=== PATIENT | male | born 1990 | race Two or more races ===

== ENCOUNTER 2016-10-06 11:17 | Inpatient (IN) | payer OTHER ==
[2016-10-06] MEDS ORDERED: SODIUM CHLORIDE 0.9% 3 ML FLUSH FLUSH PRN (11:54)
--- NOTE | 2016-10-06 12:10 | EDPRACDOC ---
- General Information Information Source: Patient Mode Of Arrival: Car - History of Present Illness Onset: 3 days Pain Location: Reports: RLQ Pain Context: Reports: Spontaneous Pain Severity: Mild Pain Quality: Reports: Aching Pain Radiation: Reports: No Radiation Modifying Factors: improves with: Nothing Associated Signs & Symptoms: Reports: Nausea, Vomiting. Denies: Diarrhea, Dysuria, Fever, Chills Oral Intake: Normal Urinary Output: Normal <GregoryNicole - Last Filed: 10/06/16 11:54> <Aaron Gallowayald Oscar - Last Filed: 10/06/16 15:24> - General Information Chief Complaint: Abdominal Pain Stated Complaint: ABD PAIN Time Seen by Provider: 10/06/16 11:34 Home Medications: Home Medications No Home Medications 10/06/16 Allergies/Adverse Reactions: Allergies Allergy/AdvReac Type Severity Reaction Status Date / Time No Known Allergies Allergy Verified 10/06/16 11:25 - History of Present Illness HPI: Patient reports RLQ pain started Friday with nausea/vomiting, denies fever, chills. Reports some pain with urination. No flank pain, father with hx of kidney stones, patient denies hx of stones or abdominal surgery. (Nicole Jenkins) ED Past Medical History - History Reviewed Yes Nurses notes reviewed and agree except as marked - Patient Medical History Psychological History: Denies: Depression Surgical History: Reports: No Significant History - Social Medical History Smoking Status: Never smoker ETOH: None Substance Abuse: None Lives In: Home <GregoryNicole Amaya - Last Filed: 10/06/16 11:54> EDM Review of Systems - Review of Systems ROS Negative Except as Marked: Yes All systems reviewed and were negative except as marked Constitutional: No Symptoms Reported. negative: Chills, Fever Eyes: No Symptoms Reported Throat: No Symptoms Reported Nose: No Symptoms Reported Mouth: No Symptoms Reported Respiratory: No Symptoms Reported Gastrointestinal: Nausea, Pain, Vomiting Genitourinary: No Symptoms Reported Neurological: No Symptoms Reported Musculoskeletal: No Symptoms Reported Integumentary: No Symptoms Reported <Nicole Jenkins - Last Filed: 10/06/16 11:54> - Physical Exam Constitutional: Alert (Awake), No apparent distress Oriented to: Time, Person, Place - HEENT Head: Normal ( normocephalic) Eye Exam: Normal (PERRL, EOMI, Sclera white) Neck: Normal (FROM, trachea at midline) - Respiratory/Cardiovascular Respiratory: Normal - CTA (BBS clear to auscultation without adventitious sounds ) Cardiovascular: Normal (RRR without murmur, gallop or rub) - GI Auscultation: Normal (NABS) Tenderness: Mild, RLQ - Musculoskeletal Back: Normal (Non-Tender) Extremities: Normal (Normal tone, Pulses 2+ No cyanosis or edema, FROM) - Integumentary Skin: Normal, Warm, Dry Lymphatics: Normal (no adenopathy) - Neurologic Memory Impaired: Normal Motor Function: Normal (Normal tone, Pulses 2+ No cyanosis or edema, FROM) Mood Description: Normal <Nicole Jenkins - Last Filed: 10/06/16 11:54> <Nicole Jenkins - Last Filed: 10/06/16 11:54> - Results 10/06/16 11:37 10/06/16 11:37 <Sandeep Galloway - Last Filed: 10/06/16 15:24> - Results WBC 23.1 xk/uL (3.8-10.8) H 10/06/16 11:37 RBC 5.78 xM/uL (4.70-6.10) 10/06/16 11:37 Hgb 16.0 g/dL (14.0-18.0) 10/06/16 11:37 Hct 47.7 % (42-52) 10/06/16 11:37 MCV 83 fL (80-94) 10/06/16 11:37 MCH 27.8 pg (27-32) 10/06/16 11:37 MCHC 33.6 g/dl (33-36) 10/06/16 11:37 RDW 13.2 % (11.5-14.5) 10/06/16 11:37 Plt Count 295 xk/uL (130-400) 10/06/16 11:37 MPV 8.6 fL (7.4-10.4) 10/06/16 11:37 Neut % (Auto) Cancelled 10/06/16 11:37 Lymph % (Auto) Cancelled 10/06/16 11:37 Love % (Auto) Cancelled 10/06/16 11:37 Eos % (Auto) Cancelled 10/06/16 11:37 Baso % (Auto) Cancelled 10/06/16 11:37 Absolute Neuts (auto) Cancelled 10/06/16 11:37 Absolute Lymphs (auto) Cancelled 10/06/16 11:37 Seg Neuts % (Manual) 70 % (45-76) 10/06/16 11:37 Band Neutrophils % 3 % (0-5) 10/06/16 11:37 Lymphocytes % (Manual) 14 % (17-44) L 10/06/16 11:37 Monocytes % (Manual) 12 % (0-10) H 10/06/16 11:37 Basophils % (Manual) 1 % (0-2) 10/06/16 11:37 Absolute Neutrophils 16.86 xk/uL (1.7-8.2) H 10/06/16 11:37 Absolute Lymphocytes 3.23 xk/uL (0.65-4.75) 10/06/16 11:37 Atypical Lymphocytes Occ 10/06/16 11:37 Platelet Estimate Norm (NORMAL) 10/06/16 11:37 RBC Morphology Norm 10/06/16 11:37 Sodium 134 mEq/L (137-146) L 10/06/16 11:37 Potassium 4.5 mEq/L (3.5-5.1) 10/06/16 11:37 Chloride 93 mEq/L (98-107) L 10/06/16 11:37 Carbon Dioxide 28 mMOL/L (22-33) 10/06/16 11:37 Anion Gap 18 mEq/L (8-16) H 10/06/16 11:37 BUN 10 MG/DL (9-20) 10/06/16 11:37 Creatinine 0.80 MG/DL (0.66-1.25) 10/06/16 11:37 Estimated GFR (MDRD) > 60 mL/min (>=60) 10/06/16 11:37 Glucose 99 MG/DL (70-99) 10/06/16 11:37 Calculated Osmolality 257 MOs/Kg (270-290) L 10/06/16 11:37 Calcium 9.7 MG/DL (8.4-10.2) 10/06/16 11:37 Total Bilirubin 1.9 MG/DL (0.2-1.3) H 10/06/16 11:37 AST 23 IU/L (17-59) 10/06/16 11:37 ALT 35 IU/L (21-72) 10/06/16 11:37 Alkaline Phosphatase 116 IU/L (38-126) 10/06/16 11:37 Total Protein 8.3 G/DL (6.3-8.2) H 10/06/16 11:37 Albumin 4.5 G/DL (3.5-5.0) 10/06/16 11:37 Lipase 31 U/L (23-300) 10/06/16 11:37 Urine Color Yellow 10/06/16 11:30 Urine Clarity Clear 10/06/16 11:30 Urine pH 6.0 (5.0-8.0) 10/06/16 11:30 Ur Specific [place] 1.015 (1.003-1.035) 10/06/16 11:30 Urine Protein 1+ (NEG/TRACE) H 10/06/16 11:30 Urine Glucose (UA) Neg (NEGATIVE) 10/06/16 11:30 Urine Ketones 1+ (NEGATIVE) H 10/06/16 11:30 Urine Occult Blood Neg (NEG/TRACE) 10/06/16 11:30 Urine Nitrite Neg (NEGATIVE) 10/06/16 11:30 Urine Bilirubin Neg (NEGATIVE) 10/06/16 11:30 Urine Urobilinogen 0.2 MG/DL (0-1) 10/06/16 11:30 Ur Leukocyte Esterase Neg (NEGATIVE) 10/06/16 11:30 Urine RBC 0-2 (0-2) 10/06/16 11:30 Urine WBC 0-2 (0-2) 10/06/16 11:30 Ur Epithelial Cells Occ 10/06/16 11:30 Urine Bacteria Few (NEG/FEW) 10/06/16 11:30 Urine Mucus Mod (NEG/OCC) H 10/06/16 11:30 Urine Sperm Occ (NONE) H 10/06/16 11:30 Lab Results 10/06/16 10/06/16 10/06/16 11:37 11:37 11:37 WBC 23.1 H RBC 5.78 Hgb 16.0 Hct 47.7 MCV 83 MCH 27.8 MCHC 33.6 RDW 13.2 Plt Count 295 MPV 8.6 Neut % (Auto) Cancelled Lymph % (Auto) Cancelled Love % (Auto) Cancelled Eos % (Auto) Cancelled Baso % (Auto) Cancelled Absolute Neuts (auto) Cancelled Absolute Lymphs (auto) Cancelled Seg Neuts % (Manual) 70 Band Neutrophils % 3 Lymphocytes % (Manual) 14 L Monocytes % (Manual) 12 H Basophils % (Manual) 1 Absolute Neutrophils 16.86 H Absolute Lymphocytes 3.23 Atypical Lymphocytes Occ Platelet Estimate Norm RBC Morphology Norm Sodium 134 L Potassium 4.5 Chloride 93 L Carbon Dioxide 28 Anion Gap 18 H BUN 10 Creatinine 0.80 Estimated GFR (MDRD) > 60 Glucose 99 Calculated Osmolality 257 L Calcium 9.7 Total Bilirubin 1.9 H AST 23 ALT 35 Alkaline Phosphatase 116 Total Protein 8.3 H Albumin 4.5 Lipase 31 Urine Color Urine Clarity Urine pH Ur Specific [place] Urine Protein Urine Glucose (UA) Urine Ketones Urine Occult Blood Urine Nitrite Urine Bilirubin Urine Urobilinogen Ur Leukocyte Esterase Urine RBC Urine WBC Ur Epithelial Cells Urine Bacteria Urine Mucus Urine Sperm 10/06/16 11:30 WBC RBC Hgb Hct MCV MCH MCHC RDW Plt Count MPV Neut % (Auto) Lymph % (Auto) Love % (Auto) Eos % (Auto) Baso % (Auto) Absolute Neuts (auto) Absolute Lymphs (auto) Seg Neuts % (Manual) Band Neutrophils % Lymphocytes % (Manual) Monocytes % (Manual) Basophils % (Manual) Absolute Neutrophils Absolute Lymphocytes Atypical Lymphocytes Platelet Estimate RBC Morphology Sodium Potassium Chloride Carbon Dioxide Anion Gap BUN Creatinine Estimated GFR (MDRD) Glucose Calculated Osmolality Calcium Total Bilirubin AST ALT Alkaline Phosphatase Total Protein Albumin Lipase Urine Color Yellow Urine Clarity Clear Urine pH 6.0 Ur Specific [place] 1.015 Urine Protein 1+ H Urine Glucose (UA) Neg Urine Ketones 1+ H Urine Occult Blood Neg Urine Nitrite Neg Urine Bilirubin Neg Urine Urobilinogen 0.2 Ur Leukocyte Esterase Neg Urine RBC 0-2 Urine WBC 0-2 Ur Epithelial Cells Occ Urine Bacteria Few Urine Mucus Mod H Urine Sperm Occ H (Sandeep Galloway) - Additional Information MD NOTE SEEN AND EXAMINED; PAIN FOR THREE DAYS. NO PO INTAKE TODAY EXCEPT PO CONTRAST. VERY HEALTHY. NO MEDS, ALLERGIES, OR PREVIOUS SURGERIES. (Sandeep Galloway) <Nicole Jenkins - Last Filed: 10/06/16 11:54> - Departure Yes I personally saw and evaluated the patient. Disposition: Admit IP To This Hospital Decision to Admit Time: 15:24 (WINNIE) Decision to admit date: 10/06/16 Decision to admit: from ED <Sandeep Galloway - Last Filed: 10/06/16 15:24> - Departure Condition: Good Final Diagnosis: Appendicitis
[2016-10-06 12:17] LABS: RBC/URINE 0-2 (0-2); WBC/URINE 0-2 (0-2)
[2016-10-06 12:27] LABS: MPV 8.6 fL (7.4-10.4)
[2016-10-06 12:39] LABS: BLOOD UREA NITROGEN 10 MG/DL (9-20); CALCIUM 9.7 MG/DL (8.4-10.2); CALCULATED OSMOLALITY 257 MOs/Kg (270-290); CHLORIDE 93 mEq/L (98-107); GLUCOSE 99 MG/DL (70-99); SODIUM LEVEL 134 mEq/L (137-146); TOTAL PROTEIN 8.3 G/DL (6.3-8.2)
[2016-10-06] MEDS ORDERED: DIATRIZOATE MEGLMINE/SODIUM 30 ML BOTTLE PO ONE (12:45)
[2016-10-06 12:46] LABS: LEUKOCYTES/URINE NEG (NEGATIVE); NITRITE/URINE NEG (NEGATIVE); URINE OCCULT BLOOD NEG (NEG/TRACE)
[2016-10-06 12:57] LABS: SEG NEUTROPHIL 70 % (45-76)
[2016-10-06] MEDS ORDERED: Pharmacy Review for Metformin - IV Contrast Given SCH ×4 (13:00)
--- NOTE | 2016-10-06 15:19 | DIRPT ---
CLINICAL DATA: Right lower quadrant pain 3 days. Leukocytosis. EXAM: CT ABDOMEN AND PELVIS WITH CONTRAST TECHNIQUE: Multidetector CT imaging of the abdomen and pelvis was performed using the standard protocol following bolus administration of intravenous contrast. CONTRAST: 100 mL Isovue 370 COMPARISON: None. FINDINGS: Lower chest: No acute findings. Hepatobiliary: No masses or other significant abnormality. Gallbladder is unremarkable. Pancreas: No mass, inflammatory changes, or other significant abnormality. Spleen: Within normal limits in size and appearance. Adrenals/Urinary Tract: No masses identified. No evidence of hydronephrosis. Stomach/Bowel: The appendix is markedly enlarged and shows moderate to severe periappendiceal inflammatory changes, consistent with acute appendicitis. Several internal adnexal is also noted. Small amount of free fluid is seen in the right lower quadrant and pelvic cul-de-sac, but no mature abscess identified. No evidence of bowel obstruction. Vascular/Lymphatic: No pathologically enlarged lymph nodes. No evidence of abdominal aortic aneurysm. Reproductive: No mass or other significant abnormality. Other: None. Musculoskeletal: No suspicious bone lesions identified. IMPRESSION: Acute appendicitis with moderate periappendiceal inflammatory changes and free fluid extending and pelvis. No evidence of mature abscess or bowel obstruction. Electronically Signed By: Lionel Stanley M.D. On: 10/06/2016 15:16
[2016-10-06] MEDS ORDERED: ERTAPENEM 1 GM in NS 100 ML IV ONE (15:22)
--- NOTE | 2016-10-06 15:56 | HISTPHYS ---
- Chief Complaint Right lower quadrant abdominal pain. - History of Present Illness 26-year-old male who speaks excellent Chadian who suffers from 2-3 days history of right lower quadrant abdominal pain. The pain is worse when he lays on that side. He had some nausea and vomiting Shay night. He thinks he had some tactile fevers. He got hot but took his socks off and felt better. He took some stool softeners but the pain did not improve. He complains of some painful urination as well. He denies diarrhea or constipation. He denies any sick contacts. He went to urgent care and was subsequently sent to the emergency department for evaluation. He is not currently hungry. In the ER his white blood cell count was noted to be elevated and CT scan the abdomen pelvis was reviewed independently this shows findings consistent with acute appendicitis. I was asked for surgical intervention. Patient states the pain medications made the pain somewhat better. - Medical History Cardiac History: Reports: No Significant History Respiratory History: Reports: No Significant History GI/ History: Reports: No Significant History Musculoskeletal History: Reports: No Significant History Systemic History: Reports: No Significant History Neurological History: Reports: No Significant History Psychological History: Reports: No Significant History. Denies: Depression - Surgical History Reports: No Significant History - Medictions/Allergies Allergies No Known Allergies Allergy (Verified 10/06/16 11:25) Home Medications No Home Medications 10/06/16 - Family History Reports: Hypertension (Father), Other (Depression in his father) - Social History Lives: With Family Smoking Status: Never smoker Social History: Denies: Alcohol Use, Substance Use Disorder - Review of Systems Yes All systems reviewed and were negative except as marked Gastrointestinal: Abdominal Pain - Physical Exam Vital Signs: Initial Vitals Temperature 99.4 F 10/06/16 11:23 Pulse Rate 98 10/06/16 11:23 Respiratory Rate 16 10/06/16 11:23 Blood Pressure 143/64 10/06/16 11:23 Pulse Oxygen Saturation 97 10/06/16 11:23 Exam: General: Pleasant male No acute distress. HEENT: Normocephalic atraumatic. Sclerae nonicteric. Extraocular movements intact. Oral mucosa pink and moist. Neck: Supple. Nontender. Good range of motion. No masses. Trachea is midline. No cervical adenopathy. Lungs: Clear to auscultation. No rhonchi or wheezing. Good excursion. Heart: Regular rate and rhythm. No murmurs or rubs. Abdomen: Soft, active bowel sounds, nondistended. No hepatosplenomegaly. No abdominal wall defects or masses. Tender in the right lower quadrant with focal rebound tenderness and referred rebound tenderness. Groins: No hernias or masses. Back: No CVA tenderness. No ecchymosis. Extremities: no cyanosis clubbing or edema. No palpable deformities. Vascular: Dorsalis pedis and posterior tibial pulses palpable bilaterally. Skin: Warm and dry, no erythema , no ulcerations. Neurologic: No focal deficits. - Lab Results Laboratory Results - last 24 hr 10/06/16 10/06/16 10/06/16 11:30 11:37 11:37 WBC 23.1 H RBC 5.78 Hgb 16.0 Hct 47.7 MCV 83 MCH 27.8 MCHC 33.6 RDW 13.2 Plt Count 295 MPV 8.6 Neut % (Auto) Cancelled Lymph % (Auto) Cancelled [place] % (Auto) Cancelled Eos % (Auto) Cancelled Baso % (Auto) Cancelled Absolute Neuts (auto) Cancelled Absolute Lymphs (auto) Cancelled Seg Neuts % (Manual) 70 Band Neutrophils % 3 Lymphocytes % (Manual) 14 L Monocytes % (Manual) 12 H Basophils % (Manual) 1 Absolute Neutrophils 16.86 H Absolute Lymphocytes 3.23 Atypical Lymphocytes Occ Platelet Estimate Norm RBC Morphology Norm Sodium 134 L Potassium 4.5 Chloride 93 L Carbon Dioxide 28 Anion Gap 18 H BUN 10 Creatinine 0.80 Estimated GFR (MDRD) > 60 Glucose 99 Calculated Osmolality 257 L Calcium 9.7 Total Bilirubin 1.9 H AST 23 ALT 35 Alkaline Phosphatase 116 Total Protein 8.3 H Albumin 4.5 Lipase Urine Color Yellow Urine Clarity Clear Urine pH 6.0 Ur Specific [place] 1.015 Urine Protein 1+ H Urine Glucose (UA) Neg Urine Ketones 1+ H Urine Occult Blood Neg Urine Nitrite Neg Urine Bilirubin Neg Urine Urobilinogen 0.2 Ur Leukocyte Esterase Neg Urine RBC 0-2 Urine WBC 0-2 Ur Epithelial Cells Occ Urine Bacteria Few Urine Mucus Mod H Urine Sperm Python Developer 10/06/16 11:37 WBC RBC Hgb Hct MCV MCH MCHC RDW Plt Count MPV Neut % (Auto) Lymph % (Auto) [place] % (Auto) Eos % (Auto) Baso % (Auto) Absolute Neuts (auto) Absolute Lymphs (auto) Seg Neuts % (Manual) Band Neutrophils % Lymphocytes % (Manual) Monocytes % (Manual) Basophils % (Manual) Absolute Neutrophils Absolute Lymphocytes Atypical Lymphocytes Platelet Estimate RBC Morphology Sodium Potassium Chloride Carbon Dioxide Anion Gap BUN Creatinine Estimated GFR (MDRD) Glucose Calculated Osmolality Calcium Total Bilirubin AST ALT Alkaline Phosphatase Total Protein Albumin Lipase 31 Urine Color Urine Clarity Urine pH Ur Specific [place] Urine Protein Urine Glucose (UA) Urine Ketones Urine Occult Blood Urine Nitrite Urine Bilirubin Urine Urobilinogen Ur Leukocyte Esterase Urine RBC Urine WBC Ur Epithelial Cells Urine Bacteria Urine Mucus Urine Sperm - Diagnostic Findings EXAM: CT ABDOMEN AND PELVIS WITH CONTRAST TECHNIQUE: Multidetector CT imaging of the abdomen and pelvis was performed using the standard protocol following bolus administration of intravenous contrast. CONTRAST: 100 mL Isovue 370 COMPARISON: None. FINDINGS: Lower chest: No acute findings. Hepatobiliary: No masses or other significant abnormality. Gallbladder is unremarkable. Pancreas: No mass, inflammatory changes, or other significant abnormality. Spleen: Within normal limits in size and appearance. Adrenals/Urinary Tract: No masses identified. No evidence of hydronephrosis. Stomach/Bowel: The appendix is markedly enlarged and shows moderate to severe periappendiceal inflammatory changes, consistent with acute appendicitis. Several internal adnexal is also noted. Small amount of free fluid is seen in the right lower quadrant and pelvic cul-de-sac, but no mature abscess identified. No evidence of bowel obstruction. Vascular/Lymphatic: No pathologically enlarged lymph nodes. No evidence of abdominal aortic aneurysm. Reproductive: No mass or other significant abnormality. Other: None. Musculoskeletal: No suspicious bone lesions identified. IMPRESSION: Acute appendicitis with moderate periappendiceal inflammatory changes and free fluid extending and pelvis. No evidence of mature abscess or bowel obstruction. Electronically Signed By: Lionel Stanley M.D. On: 10/06/2016 15:16 - Assessment/Plan (1) Acute appendicitis with localized peritonitis K35.3 - ACUTE APPENDICITIS WITH LOCALIZED PERITONITIS Acute Present on Admission: Yes Comment: Patient presents with historical, clinical, and radiographic evidence for acute appendicitis. He will be resuscitated with IV fluids and be given IV antibiotics. Will plan a laparoscopic appendectomy later today. The rationale for this was discussed with the patient and his mother. Nonsurgical therapy was discussed and discouraged. Risks of the surgery were discussed and include , but are not limited to: Bleeding, infection, nerve damage, cardiopulmonary risk, abscess, hernia, intra-abdominal organ injury, or other possible adverse outcomes. Patient is agreeable to proceed with surgery for his symptomatic acute appendicitis. (2) RLQ abdominal pain R10.31 - RIGHT LOWER QUADRANT PAIN Acute Present on Admission: Yes Comment: Due to acute appendicitis. This will be managed surgically. (3) Leukocytosis D72.829 - ELEVATED WHITE BLOOD CELL COUNT, UNSPECIFIED Acute Present on Admission: Yes unspecified D72.829 - Elevated white blood cell count, unspecified Comment: Due to the acute appendicitis. Antibiotics were started. This will be managed surgically. Case Care Discussed with: Patient, Family, Nursing Staff
[2016-10-06] MEDS ORDERED: BUPIVACAINE 0.5% 30 ML VIAL ONE (16:05)
[2016-10-06] MEDS ORDERED: FENTANYL 100 MCG/2 ML VIAL IV PRN ×2 (16:20)
[2016-10-06] MEDS ORDERED: ONDANSETRON HCL 4 MG/2 ML VIAL IV PRN ×2 (16:20→18:08)
[2016-10-06] MEDS ORDERED: MEPERIDINE 25 MG/ML TUBEX IV PRN (16:20)
[2016-10-06] MEDS ORDERED: DIPHENHYDRAMINE 50 MG/ML VIAL IV PRN (16:20)
[2016-10-06] MEDS ORDERED: hydrALAZINE 20 MG/ML VIAL IV PRN (16:20)
[2016-10-06] MEDS ORDERED: LABETALOL 20 MG/4 ML SYRINGE IV PRN (16:20)
[2016-10-06] MEDS ORDERED: PROMETHAZINE 25 MG/ML VIAL IV PRN ×3 (16:20→18:08)
[2016-10-06] MEDS ORDERED: HYDROmorphone 1 MG INJECTION IV PRN ×2 (16:20)
[2016-10-06] MEDS ORDERED: ONDANSETRON HCL 4 MG ODT TAB PO PRN (16:20)
--- NOTE | 2016-10-06 16:22 | SC.ANESPOS ---
Post-Anesthesia Note LOC: [place] on Calling Post-Anesthesia Assessment: Awake, Returned to Baseline, Hemodynamically Stable , Pain Control Adequate Phase I & II Recovery Complete: Yes Apparent Anesthesia Complication: No : N - Vital Signs Blood Pressure: 134/68 Pulse: 76 Resp Rate: 18 O2 Sat: 100 Temp: 99.4 F
--- NOTE | 2016-10-06 16:28 | HIM.ANES ---
Anesthesia Evaluation & Plan Surgeon:: Jose Hoover - Focused Review of Systems Psychological: No Hx Depression Smoking Status: Never smoker Past Social History: Denies: Alcohol Use, Substance Use Disorder Alcohol use: None - Focused Physical Exam NPO since: 09 Mallampati: Class II Thyromental Distance: Greater than 3 Neck: Full Range of Motion Dental: Normal - no significant findings Cardiovascular/Chest: Normal Respiratory: Lungs clear Any problems with anesthesia, including nausea and vomiting?: No Any relatives with a history of Malignant Hyperthermia?: No Does patient have a history of Malignant Hyperthermia?: No Beta Mamta given (if appropriate): N/A Other: Problem List Problem Status Onset Acute appendicitis with localized peritonitis Acute Appendicitis Acute Leukocytosis Acute RLQ abdominal pain Acute CBC/BMP/Other 10/06/16 11:37 10/06/16 11:37 Allergies Allergy/AdvReac Type Severity Reaction Status Date / Time No Known Allergies Allergy Verified 10/06/16 11:25 Home Medications Medication Instructions Recorded Last Taken Type No Home Medications 10/06/16 Unknown History Height and Weight Patient's height 5 ft 11 in Patient's weight 155 lb Weight (Calculated Kilograms) 70.307 BMI 21.6 Vital Signs Temperature 99.4 F 10/06/16 16:22 Pulse Rate 76 10/06/16 16:22 Respiratory Rate 18 10/06/16 16:22 Blood Pressure 134/68 10/06/16 16:22 Pulse Oxygen Saturation 100 10/06/16 16:22 - Anesthetic Plan Anesthesia Type: General ASA Class: 1, E -: I have examined this patient and reviewed the medical record. The patient has been assessed prior to anesthesia. Risks and benefits of anesthesia and anesthetic technique options have been discussed and all questions answered. The patient accepts the risk and desires me to proceed with the planned anesthetic.
--- NOTE | 2016-10-06 17:32 | HIMOPRPT ---
DATE OF PROCEDURE: 10/06/16 PREOPERATIVE DIAGNOSIS: Acute appendicitis. POSTOPERATIVE DIAGNOSIS: Acute gangrenous retrocecal appendicitis, final pathology pending. PROCEDURE: Laparoscopic appendectomy. SURGEON: Jose Hoover M.D. ANESTHESIA: General. COMPLICATIONS: None. SPECIMEN: Appendix and mesoappendix to Pathology. PACKINGS AND DRAINS: None. ESTIMATED BLOOD LOSS: 3 cc. OPERATIVE FINDINGS AND TECHNIQUE: With consent, the patient was brought to the operative suite, placed in supine position. Following general anesthesia, the abdomen was prepped and draped in usual fashion. A curvilinear infraumbilical incision was made. Dissection was carried down to the level of the fascia, and the fascia was incised in the midline. Peritoneal cavity was entered under direct vision. The balloon Abhishek trocar was placed. The abdominal cavity was inflated with carbon dioxide creating pneumoperitoneum. Videoscopic exploration was undertaken. The appendix was inflamed and in a retrocecal location. The appendix appeared gangrenous in its midportion and there was some serosanguineous fluid in the pelvic area. The patient was appropriately positioned and additional trocars were then placed. A 5-mm trocar was placed in the suprapubic area, and an additional 5-mm trocar was placed in left lower quadrant. In each case, skin incision was made with skin knife and trocars entered the peritoneal cavity under videoscopic guidance. Appendix was grasped and retracted. The appendix split in 2 during the course of dissection. Mesoappendix was identified and ligated and divided using the Harmonic Scalpel. The base of the appendix was stapled across using laparoscopic AYDEE stapler. The appendiceal stump staple line was intact and hemostatic. The 2 portions of the appendix were placed in a retrieval sac, taken out of the abdominal cavity and passed off as specimen. Right upper quadrant and pelvic area and right lower quadrant were irrigated copiously. There was no further pelvic fluid. The effluent was clear. Again, the appendiceal stump staple line was intact and hemostatic. Trocars were then sequentially removed. There was no bleeding from the trocar insertion sites. The abdomen was desufflated. The fascia of the infraumbilical incision was closed with 0-Vicryl suture in interrupted [id number] fashion. All wounds were irrigated and dried. All wounds were injected with 0.5% Marcaine. Each skin incision was approximated using 4-0 Monocryl in subcuticular fashion. Dermabond, 2 x 2 gauze, and Tegaderm dressing were applied to the wounds. The patient tolerated the procedure well with findings as described. At termination of the procedure, all instrument, sponge, and needle counts were correct. Final pathology is pending.
[2016-10-06] MEDS ORDERED: SODIUM CHLORIDE 0.9% 3 ML FLUSH FLUSH SCH ×2 (18:00→18:08)
[2016-10-06] MEDS ORDERED: DIPHENHYDRAMINE 25 MG CAP PO PRN (18:08)
[2016-10-06] MEDS ORDERED: DOCUSATE-SENNA CONCENTRATE TAB PO PRN (18:08)
[2016-10-06] MEDS ORDERED: LORAZEPAM 2 MG/ML VIAL IV PRN (18:08)
[2016-10-06] MEDS ORDERED: IBUPROFEN 600 MG TAB PO PRN (18:08)
[2016-10-06] MEDS ORDERED: ZOLPIDEM TARTRATE 5 MG TAB PO PRN (18:08)
[2016-10-06] MEDS ORDERED: FENTANYL 100 MCG/2 ML VIAL ONE (18:08)
[2016-10-06] MEDS ORDERED: ACETAMINOPHEN 650 MG SUPP PR PRN (18:08)
[2016-10-06] MEDS ORDERED: MORPHINE 2 MG/ML INJECTION IV PRN (18:08)
[2016-10-06] MEDS ORDERED: Albuterol/Ipratropium Neb 3 ML NEB NEB PRN (18:08)
[2016-10-06] MEDS ORDERED: Aluminum;Magnesium;Simethicone 30 ML UDC PO PRN (18:08)
[2016-10-06] MEDS: LR 1,000 ML IV SCH (19:02)
[2016-10-06] MEDS: ACETAMINOPHEN 325 MG/TAB TABLET PO PRN (22:25)
[2016-10-06] MEDS ORDERED: Vaccine Screening Complete SCH (23:00)
[2016-10-07 06:42] VITALS: BMI 20.9
[2016-10-07 07:21] LABS: AUTOMATED BASOPHIL 0.1 % (0-2); AUTOMATED EOSINOPHIL 0.1 % (0-5); AUTOMATED MONOCYTE 13.8 % (3-10); MPV 8.6 fL (7.4-10.4)
--- NOTE | 2016-10-07 09:18 | PCM.SURGRO ---
- Subjective Post Op Day: 1 Patient: Reports: Bowel Movement, Fever - Objective / Physical Exam Vital Signs: Temperature: 98.1 F (10/07/16 06:00) HR: 61 (10/07/16 06:00)RR: 18 (10/07/16 06: 00) BP: 127/55 (10/07/16 06:00)Pulse Ox: 99 (10/07/16 06:00) General: Alert, Oriented x3 Respiratory: Normal - CTA Cardiovascular: Regular rate and rhythm Gastrointestinal: Soft, Bowel Sounds, Tender (At the incisions). negative: Distended Laboratory/Diagnostics Reviewed: Laboratory Results - last 24 hr 10/06/16 10/06/16 10/06/16 11:30 11:37 11:37 WBC 23.1 H RBC 5.78 Hgb 16.0 Hct 47.7 MCV 83 MCH 27.8 MCHC 33.6 RDW 13.2 Plt Count 295 MPV 8.6 Neut % (Auto) Cancelled Lymph % (Auto) Cancelled Wilson % (Auto) Cancelled Eos % (Auto) Cancelled Baso % (Auto) Cancelled Absolute Neuts (auto) Cancelled Absolute Lymphs (auto) Cancelled Seg Neuts % (Manual) 70 Band Neutrophils % 3 Lymphocytes % (Manual) 14 L Monocytes % (Manual) 12 H Basophils % (Manual) 1 Absolute Neutrophils 16.86 H Absolute Lymphocytes 3.23 Atypical Lymphocytes Occ Platelet Estimate Norm RBC Morphology Norm Sodium 134 L Potassium 4.5 Chloride 93 L Carbon Dioxide 28 Anion Gap 18 H BUN 10 Creatinine 0.80 Estimated GFR (MDRD) > 60 Glucose 99 Calculated Osmolality 257 L Calcium 9.7 Total Bilirubin 1.9 H AST 23 ALT 35 Alkaline Phosphatase 116 Total Protein 8.3 H Albumin 4.5 Lipase Urine Color Yellow Urine Clarity Clear Urine pH 6.0 Ur Specific [place] 1.015 Urine Protein 1+ H Urine Glucose (UA) Neg Urine Ketones 1+ H Urine Occult Blood Neg Urine Nitrite Neg Urine Bilirubin Neg Urine Urobilinogen 0.2 Ur Leukocyte Esterase Neg Urine RBC 0-2 Urine WBC 0-2 Ur Epithelial Cells Occ Urine Bacteria Few Urine Mucus Mod H Urine Sperm [employer] 10/06/16 10/07/16 11:37 06:10 WBC 15.3 H RBC 5.01 Hgb 13.8 L D Hct 41.3 L MCV 82 MCH 27.6 MCHC 33.5 RDW 13.3 Plt Count 242 MPV 8.6 Neut % (Auto) 76.0 Lymph % (Auto) 10.0 L Wilson % (Auto) 13.8 H Eos % (Auto) 0.1 Baso % (Auto) 0.1 Absolute Neuts (auto) 11.63 H Absolute Lymphs (auto) 1.53 Seg Neuts % (Manual) Band Neutrophils % Lymphocytes % (Manual) Monocytes % (Manual) Basophils % (Manual) Absolute Neutrophils Absolute Lymphocytes Atypical Lymphocytes Platelet Estimate RBC Morphology Sodium Potassium Chloride Carbon Dioxide Anion Gap BUN Creatinine Estimated GFR (MDRD) Glucose Calculated Osmolality Calcium Total Bilirubin AST ALT Alkaline Phosphatase Total Protein Albumin Lipase 31 Urine Color Urine Clarity Urine pH Ur Specific [place] Urine Protein Urine Glucose (UA) Urine Ketones Urine Occult Blood Urine Nitrite Urine Bilirubin Urine Urobilinogen Ur Leukocyte Esterase Urine RBC Urine WBC Ur Epithelial Cells Urine Bacteria Urine Mucus Urine Sperm - Assessment and Plan (1) Acute appendicitis with localized peritonitis Resolved K35.3 - ACUTE APPENDICITIS WITH LOCALIZED PERITONITIS Present on Admission: Yes Comment/Plan: Postop day 1. He gangrenous appendicitis. He had a fever spike last night. Recommend changing the patient to inpatient status and continue IV antibiotic therapy. He will have a CBC checked tomorrow. If he has no fever spikes and his white blood cell count continues to diminish, consider discharge home tomorrow. (2) Leukocytosis Acute D72.829 - ELEVATED WHITE BLOOD CELL COUNT, UNSPECIFIED Present on Admission: Yes unspecified D72.829 - Elevated white blood cell count, unspecified Comment/Plan: Follow white blood cell count tomorrow.
[2016-10-07] MEDS ORDERED: ONDANSETRON HCL 4 MG/2 ML VIAL IV ONE (10:09)
[2016-10-07] MEDS ORDERED: SUCCINYLCHOLINE 20 MG/1 ML INJ 10 ML MDV IV ONE (10:09)
[2016-10-07] MEDS ORDERED: MIDAZOLAM 2 MG/2 ML VIAL IV ONE (10:09)
[2016-10-07] MEDS ORDERED: FENTANYL 100 MCG/2 ML VIAL IV ONE (10:09)
[2016-10-07] MEDS ORDERED: PROPOFOL 200 MG/20 ML VIAL IV ONE (10:09)
[2016-10-07] MEDS ORDERED: LIDOCAINE 4% 5 ML AMPULE NEB ONE (10:09)
[2016-10-07] MEDS: ACETAMINOPHEN 325 MG/TAB TABLET PO PRN (14:35)
[2016-10-07] MEDS: OXYCODONE HCL 5 MG TABLET PO PRN ×2 (14:36→22:36)
[2016-10-07] MEDS ORDERED: ERTAPENEM 1 GM in NS 100 ML IV SCH (16:00)
[2016-10-07] MEDS: LR 1,000 ML IV SCH (16:00)
[2016-10-08 05:34] VITALS: BP 122/62; PULSE 56; TEMP 98.3
[2016-10-08 07:13] LABS: MPV 7.7 fL (7.4-10.4)
--- NOTE | 2016-10-08 08:16 | PCM.DCS92 ---
- Final/Secondary Discharge Diagnosis (1) Acute appendicitis with localized peritonitis Resolved K35.3 - ACUTE APPENDICITIS WITH LOCALIZED PERITONITIS Present on Admission: Yes Plan/Goal/Comment: Postop day 2. Status post laparoscopic appendectomy. He has had no fever spikes. White blood cell count has diminished even more. He is deemed a stable candidate for discharge home. Discharge Disposition: Home Discharge Condition: Stable Cognitive Discharge Status: Unimpaired Fuctional Discharge Status: Independent Physician Follow up/Referrals: Jose Hoover MD [Staff Physician] - Call for Appointment (Call today for an appointment next week) New Prescriptions: Ibuprofen Tablet [Motrin] 600 mg PO Q8H PRN #30 tab PRN Reason: Pain Oxycodone Immediate Release [Oxy-Ir] 5 mg PO Q4H PRN #40 tab PRN Reason: Pain Promethazine HCl [Phenergan] 12.5 mg PO Q6 PRN #30 tablet PRN Reason: Nausea/Vomiting Diet at Discharge: As Tolerated Activity: No Heavy Lifting, No Driving Call Office For: Worsening Symptoms, Wound is Draining Pus, Fever over 101 F Discontinue use of:: Alcohol, All Illegal Substances, All Types of Tobacco - DC Summary Notes Hospital Course Note:: Discharge summary on patient named MICHAEL RAPP admitted to [facility] on 10/07/16 by Jose Hoover MD. Date of discharge is 10/08/16. Patient is postop day 2. Status post laparoscopic appendectomy. He had fever spikes the 1st postoperative day. He continued to have a leukocytosis. He remained in the hospital on IV antibiotics. By postop day 2., he had no fever spikes. White blood cell count had diminished even more. He had no nausea or vomiting. He is voiding well. He is ambulating well. He is tolerating liquid diet well. He is deemed stable candidate for discharge home. He is to follow up in the office. Discharge instructions were discussed at length the patient. Please see electronic medical record discharge summary for full details regarding instructions. Patient admitted verbal understanding to the discharge instructions and was subsequently discharged in stable condition.. Wound Care Surgical Site: Yes Site Description (if applicable): Abdomen May Shower Starting:: Today Remove Clear Dressing In How Many Days?: Seven Ability To Perform Care (if applicable): Yes - Physical Exam Vital Signs: Initial Vitals Temperature 99.4 F 10/06/16 11:23 Pulse Rate 98 10/06/16 11:23 Respiratory Rate 16 10/06/16 11:23 Blood Pressure 143/64 10/06/16 11:23 Pulse Oxygen Saturation 97 10/06/16 11:23 Constitutional: No apparent distress Respiratory: Normal - CTA Cardiovascular: Normal - GI Auscultation: Normal Palpation: Normal Tenderness: Non tender
== END 2016-10-08 10:10 | disposition home or self-care (01) | DRG 340 ==
LOC: ED 11:17 → SDC 16:07 → MPS3 18:14 → OBSVTOIN 10-07 09:15
PROVIDERS: ADMIT Surgery Vascular Surgery; ATTEND Surgery Vascular Surgery
PROC: 3E0M05Z Introduction of Adhesion Barrier into Peritoneal Cavity, Open Approach (ICD-10-PCS; 2016-10-06)
PROC: 0DTJ4ZZ Resection of Appendix, Percutaneous Endoscopic Approach (ICD-10-PCS; principal; 2016-10-06 16:30)
DX: K35.3 Acute appendicitis with localized peritonitis (principal); D72.829 Elevated white blood cell count, unspecified
CPT/HCPCS: 36415; 74177; 80053; 81001; 83690; 85007; 85025; 85027; 99282; A9698; G0237; G0378; J0330; J1335; J2250; J2405; J3010; J3490; J7030